=== PATIENT | female | born 1935 | race Caucasian/White ===

== ENCOUNTER → 2016-08-15 | Outpatient (CLI) | payer MEDICARE, BC ==
[~2016-08-15] MED LIST: AMLODIPINE BESY10 MG PO; ASPIRIN81 M1 PO; ASPIRINEC PO; BENICAR HCT 40-1 TA1 PO; BETIMOL5 ML OP; CENTRUM SILVER PO; ECOTRIN81 M1 PO; ENTOCORT EC3 MG PO; IMDUR-ER60 MG PO; INDERAL60 MG PO; K-DUR10 MEQ PO; LATANOPROST2.5 ML OU; LEVOTHYROXINE50 MC1 PO; METOPROLOL TAR25 MG PO; NITROSTAT0.4 MG SL; NORVASC10 MG PO; OMEPRAZOLE40 MG PO; SYNTHROID PO; TIMOPTIC 0.5% OP5 M1 OU; TOPROL XL50 MG PO; TYLENOL325 M1 PO; XALATAN OP; ZESTORETIC 20/21 TAB PO; ZOLOFT100 MG PO; ZOLOFT50 MG PO; [UNRECOGNIZED DRUG - OTHER] OP; [UNRECOGNIZED DRUG - OTHER] OU
--- NOTE | ~2016-08-15 | US37 ---
[facility] A Service of [facility] RADIOLOGY TEXT RESULTS PATIENT: FELICIANO KIRKLAND LOCATION: CNIV : 31 UNIT #: [id number] AGE: [address]: SOTERO PARIKH MD SEX: F ORDER DR: [id number] [place], [place] [address] [id number] O MR#: [id number] Acc #: [id number] NAME: FELICIANO KIRKLAND. : 1935 SEX: F STUDY DATE/TIME: 08/15/2016 9:22 UNIT: [facility] ROOM: STUDY DESCRIPTION: US Carotid W/Doppler Bilateral Attending Physician: Sotero Parikh M.D. Referring Physician: Sotero Parikh M.D. Ordering Physician: Sotero Parikh M.D. Primary Care Physician: Sotero Parikh M.D. MEDICAL IMAGING REPORT This report is preliminary unless electronic signature is present EXAM Carotid Doppler HISTORY Headache and dizziness for 2 weeks. PROCEDURE Kate-scale imaging, color-Doppler flow imaging and Doppler waveform analysis. COMPARISON None. FINDINGS Mild atherosclerotic plaque is visible on kate-scale in the carotid bulb bilaterally. There is antegrade flow in both common and internal and external carotid and vertebral arteries. Right internal carotid peak systolic velocity is 1.01 m/sec with a brisk upstroke and mild spectral broadening. Left internal carotid peak systolic velocity is 69 cm/sec with a brisk systolic upstroke and mild spectral broadening. IMPRESSION 1. While there is mild kate-scale evidence of plaque in both carotid bulbs, there is less than 50% stenosis in both internal carotids by NASCET criteria. 2. Antegrade flow also demonstrated in both common and external carotid and vertebral arteries. Dictated by... [facility] A Service [facility] RADIOLOGY TEXT RESULTS PATIENT: FELICIANO KIRKLAND LOCATION: CNIV : 33 UNIT #: [id number] AGE: [address]: SOTERO PARIKH MD SEX: F ORDER DR: Brian Chao M.D. THIS IS AN ELECTRONICALLY VERIFIED REPORT Brian Chao M.D. at 08/16/2016 5:05 PM CRISTOFER/clovis TD: 08/15/2016 12:34 JOB #: [id number] MEDICAL IMAGING REPORT Page 1 of 1 COPY
== END | disposition home or self-care (01) ==
LOC: CNIV 08:30
DX: R42 Dizziness and giddiness (principal); I65.23 Occlusion and stenosis of bilateral carotid arteries
CPT/HCPCS: 93880